=== PATIENT | female | born 1940 | race Caucasian/White ===

== ENCOUNTER 2021-10-11 15:31 | Inpatient (IN) | payer OTHER, SELFPAY ==
[~2021-10-11] VITALS: Ht 165.1 cm; Wt 72.6 kg
[2021-10-11 15:31] VITALS: BP_SYST 129
[2021-10-11] MEDS ORDERED: HYDROcodone/ACETAMIN 7.5-325 MG TAB PO ONE (17:00)
[2021-10-11] MEDS ORDERED: ONDANSETRON HCL 4 MG/2 ML VIAL IVP PRN (18:30)
[2021-10-11 22:30] VITALS: BP_SYST 158
[2021-10-12] MEDS: D5/0.45 NS 1,000 ML IV SCH ×2 (00:42→18:00)
[2021-10-12 01:02] VITALS: BP_SYST 122
[2021-10-12] MEDS: MORPHINE 2 MG/ML INJ. SYRINGE IVP PRN ×2 (02:17→08:42)
[2021-10-12 07:58] LABS: BASOPHILS % (AUTO) 0.4 % (0.0-2.0); EOSINOPHILS # (AUTO) 0.1 K/uL (0.0-0.4); HEMATOCRIT 34.4 % (36-48); HEMOGLOBIN 11.3 g/dL (12.0-16.0); LYMPHOCYTES # (AUTO) 1.7 K/uL (1.0-5.5); LYMPHOCYTES % (AUTO) 15.5 % (20.5-51.5); MEAN CORPUSCULAR HEMOGLOBIN 29 pg (27-31); MEAN CORPUSCULAR HGB CONC 33 % (32-36); MEAN CORPUSCULAR VOLUME 88 fL (79.0-98.0); MONOCYTES # (AUTO) 0.8 K/uL (0.0-1.0); MONOCYTES % (AUTO) 7.5 % (1.7-9.3); NEUTROPHILS # (AUTO) 8.4 K/uL (1.8-7.7); NEUTROPHILS % (AUTO) 75.6 % (40.0-70.0); PLATELET COUNT (AUTO) 222 K/uL (130-430); RED BLOOD CELL COUNT(AUTO) 3.91 MIL/uL (4.2-6.2); RED CELL DISTRIBUTION WIDTH 14.9 % (9.0-15.0)
[2021-10-12 08:00] VITALS: BP_SYST 127
[2021-10-12 08:37] LABS: ALANINE AMINOTRANSFERASE 22 U/L (12-78); ALBUMIN 2.7 g/dL (3.4-4.8); ANION GAP 7 (5-15); ASPARTATE AMINOTRANSFERASE 13 U/L (10-37); CALCIUM 8.2 mg/dL (8.4-11.0); CHLORIDE 101 mmol/L (98-107); CREATININE 0.75 mg/dL (0.55-1.30); GLUCOSE 111 mg/dL (70-99); SODIUM SERUM 135 mmol/L (136-145); TOTAL BILIRUBIN 0.4 mg/dL (0.0-1.0); UREA NITROGEN, BLOOD 15 mg/dL (8-21)
[2021-10-12 12:23] VITALS: BP_SYST 102; BP_SYST 131
[2021-10-12 16:31] VITALS: BP_SYST 126
[2021-10-12 20:10] VITALS: BP_SYST 134
[2021-10-13 00:31] VITALS: BP_SYST 139
[2021-10-13] MEDS: MORPHINE 2 MG/ML INJ. SYRINGE IVP PRN ×2 (05:33→21:32)
[2021-10-13 07:07] LABS: BASOPHILS % (AUTO) 0.5 % (0.0-2.0); EOSINOPHILS # (AUTO) 0.1 K/uL (0.0-0.4); EOSINOPHILS % (AUTO) 1.2 % (0.0-4.0); HEMATOCRIT 32.5 % (36-48); HEMOGLOBIN 10.9 g/dL (12.0-16.0); LYMPHOCYTES # (AUTO) 1.8 K/uL (1.0-5.5); LYMPHOCYTES % (AUTO) 18.4 % (20.5-51.5); MEAN CORPUSCULAR HEMOGLOBIN 30 pg (27-31); MEAN CORPUSCULAR HGB CONC 34 % (32-36); MEAN CORPUSCULAR VOLUME 88 fL (79.0-98.0); MONOCYTES # (AUTO) 0.7 K/uL (0.0-1.0); MONOCYTES % (AUTO) 7.4 % (1.7-9.3); NEUTROPHILS # (AUTO) 7.1 K/uL (1.8-7.7); NEUTROPHILS % (AUTO) 72.5 % (40.0-70.0); PLATELET COUNT (AUTO) 228 K/uL (130-430); RED BLOOD CELL COUNT(AUTO) 3.68 MIL/uL (4.2-6.2); RED CELL DISTRIBUTION WIDTH 14.8 % (9.0-15.0); WHITE BLOOD COUNT (AUTO) 9.7 K/uL (4.8-10.8)
[2021-10-13 07:23] LABS: ANION GAP 7 (5-15); CHLORIDE 103 mmol/L (98-107); GLUCOSE 109 mg/dL (70-99); POTASSIUM 4.2 mmol/L (3.5-5.1); SODIUM SERUM 136 mmol/L (136-145); UREA NITROGEN, BLOOD 14 mg/dL (8-21)
[2021-10-13 08:00] VITALS: BP_SYST 128
[2021-10-13] MEDS: D5/0.45 NS 1,000 ML IV SCH (10:45)
[2021-10-13 12:00] VITALS: BP_SYST 132
[2021-10-13 12:39] VITALS: BP_SYST 136
[2021-10-13 16:00] VITALS: BP_SYST 131
[2021-10-13 20:00] VITALS: BP_SYST 118
[2021-10-14] VITALS (7 sets, daily range): BP systolic 112–143
[2021-10-14] MEDS: D5/0.45 NS 1,000 ML IV SCH (05:29)
[2021-10-14] MEDS: MORPHINE 2 MG/ML INJ. SYRINGE IVP PRN ×3 (07:47→18:18)
[2021-10-14 08:17] LABS: BILIRUBIN,URINE NEGATIVE (NEGATIVE); CLARITY/URINE SL CLOUDY (CLEAR); COLOR,URINE YELLOW (YELLOW); GLUCOSE,URINE NEGATIVE (NEGATIVE); KETONES,URINE NEGATIVE (NEGATIVE); LEUKOCYTE ESTERASE ,URINE 1+ (NEGATIVE); NITRITE, URINE POSITIVE (NEGATIVE); PROTEIN URINE NEGATIVE (NEGATIVE); UROBILINOGEN,URINE 0.2 (0.2-1.0)
[2021-10-14 09:14] LABS: BLOOD, URINE TRACE (NEGATIVE)
[2021-10-14 09:20] LABS: BACTERIA,URINE MANY /HPF (None Seen)
[2021-10-14] MEDS ORDERED: levoFLOXacin 500 MG TABLET PO ONE (11:00)
[2021-10-14] MEDS ORDERED: LEVO500T90 PO (17:23)
[2021-10-15] MEDS: D5/0.45 NS 1,000 ML IV SCH (02:30)
[2021-10-15] MEDS: MORPHINE 2 MG/ML INJ. SYRINGE IVP PRN (06:23)
[2021-10-15 07:14] LABS: BASOPHILS # (AUTO) 0.1 K/uL (0.0-0.2); BASOPHILS % (AUTO) 0.5 % (0.0-2.0); EOSINOPHILS # (AUTO) 0.2 K/uL (0.0-0.4); EOSINOPHILS % (AUTO) 1.5 % (0.0-4.0); HEMATOCRIT 36.1 % (36-48); LYMPHOCYTES # (AUTO) 1.7 K/uL (1.0-5.5); LYMPHOCYTES % (AUTO) 15.1 % (20.5-51.5); MEAN CORPUSCULAR HEMOGLOBIN 29 pg (27-31); MEAN CORPUSCULAR HGB CONC 33 % (32-36); MEAN CORPUSCULAR VOLUME 88 fL (79.0-98.0); MONOCYTES # (AUTO) 0.8 K/uL (0.0-1.0); MONOCYTES % (AUTO) 6.9 % (1.7-9.3); NEUTROPHILS # (AUTO) 8.6 K/uL (1.8-7.7); PLATELET COUNT (AUTO) 276 K/uL (130-430); RED CELL DISTRIBUTION WIDTH 14.8 % (9.0-15.0); WHITE BLOOD COUNT (AUTO) 11.3 K/uL (4.8-10.8)
[2021-10-15 07:44] LABS: ANION GAP 5 (5-15); CALCIUM 8.6 mg/dL (8.4-11.0); CHLORIDE 101 mmol/L (98-107); CREATININE 0.77 mg/dL (0.55-1.30); GLUCOSE 105 mg/dL (70-99); POTASSIUM 4.6 mmol/L (3.5-5.1); SODIUM SERUM 135 mmol/L (136-145); UREA NITROGEN, BLOOD 23 mg/dL (8-21)
[2021-10-15 08:00] VITALS: BP_SYST 137
[2021-10-15] MEDS ORDERED: levoFLOXacin 500 MG TABLET PO SCH (10:00)
== END 2021-10-15 11:46 | DRG 562 ==
LOC: SED 15:31 → SMU 18:19
PROVIDERS: ADMIT Internal Medicine; ATTEND Internal Medicine
DX: S42.202A Unspecified fracture of upper end of left humerus, initial encounter for closed fracture (principal); E43 Unspecified severe protein-calorie malnutrition; F32.A Depression, unspecified; J44.9 Chronic obstructive pulmonary disease, unspecified; I10 Essential (primary) hypertension; E78.5 Hyperlipidemia, unspecified; F99 Mental disorder, not otherwise specified; Z20.822 Contact with and (suspected) exposure to COVID-19; W18.39XA Other fall on same level, initial encounter; Z88.8 Allergy status to other drugs, medicaments and biological substances; Z91.040 Latex allergy status; Z79.899 Other long term (current) drug therapy; Y93.89 Activity, other specified; Y92.89 Other specified places as the place of occurrence of the external cause; Y99.8 Other external cause status; Z68.26 Body mass index [BMI] 26.0-26.9, adult
CPT/HCPCS: 36415; 73030; 80048; 80053; 81000; 85025; 87086; 97110-GP; 97112-GP; 97116-GP; 97530-GP; 99285; J2270